=== PATIENT | female | born 1935 | race Caucasian/White ===

== ENCOUNTER 2016-04-20 07:21 | Inpatient (IN) | payer OTHER ==
--- NOTE | 2016-04-20 07:19 | EDPHY ---
H & P Time Seen by Provider: 04/20/16 07:21 HPI/ROS: CHIEF COMPLAINT: Hip injury HISTORY OF PRESENT ILLNESS: This 80-year-old woman was brought in by paramedics after having fallen out of bed onto the floor. She was found kneeling by the bed complaining of left hip pain. She received 2 micrograms/ kilogram of fentanyl IV prior to arrival and in the emergency department she is only partially conversant. Per EMS there is no history of head trauma and she was normally conversant on scene. REVIEW OF SYSTEMS: Eye: no change in vision ENT: no sore throat Cardiac: no chest pain or syncope Pulmonary: no cough or SOB Abdomen: no vomiting, diarrhea, abdominal pain Musculoskeletal: no back pain Skin: no rash Neuro: no headache Constitutional: no fever : no urinary symptoms A comprehensive 10 point review of systems and history is limited by the patient 's mental status on arrival. PAST MEDICAL HISTORY: Oxygen dependent COPD. C1 and C2 fracture in October of 2014, treated with a brace. Dementia. Social history: Lives alone, daughter involved. General Appearance: Alert but only intermittently answering questions. Eyes: No scleral icterus. ENT, Mouth: Normal mucous membranes. Respiratory: Normal respiratory effort, breath sounds equal, lungs are clear to auscultation. Cardiovascular: Regular rate and rhythm. Gastrointestinal: Abdomen is soft and non tender. Neurological: Patient is alert and will only intermittently follow commands. She does scream with any movement. Face symmetric, normal movement and sensation in all extremities. Skin: Warm and dry, no rashes. Musculoskeletal: Left hip pain with any movement. She appears to have good range of motion of her right leg. Normal dorsalis pedis pulse and sensation in the left foot. Psychiatric: Not agitated. Emergency Department course/MDM: X-rays of left hip, EKG and labs. 805: xrays reviewed with daughter. Daughter confirms the patient's history of cervical spine fracture last year as well as history of dementia. 807: patient is to be admitted to the hospital for orthopedic consultation and pain control. [facility] contacted at this time, per Dr. Mcmanus admit to [facility] for evaluation and definitive treatment. Constitutional: Initial Vital Signs Temperature (C) 36.5 C 04/20/16 07:49 Heart Rate 77 04/20/16 07:49 Respiratory Rate 20 04/20/16 07:49 Blood Pressure 184/77 H 04/20/16 07:49 O2 Sat (%) 96 04/20/16 07:49 O2 Delivery Mode Room Air O2 (L/minute) 4 Allergies/Adverse Reactions: No Known Drug Allergies Allergy (Verified 04/20/16 07:54) Home Medications: Medication Instructions Recorded Citalopram [CeleXA] 20 mg PO DAILY 04/20/16 Fluticasone/Salmeter 100/50Mcg 1 puffs IH BID 04/20/16 [Advair 100/50 (*)] Herbals/Supplements -Info Only 1 each PO DAILY 04/20/16 Lisinopril [Zestril 20 mg (*)] 20 mg PO BID 04/20/16 Tiotropium Inhaler [Spiriva 2 each IH DAILY@1030 04/20/16 Handihaler] Medical Decision Making - Diagnostics EKG Interpretation: 12-lead EKG interpreted by me; official reading is in trace master. My interpretation is sinus rhythm with borderline right axis, LVH. Imaging: X-ray left hip viewed independently by myself shows displaced left femoral neck fracture. CT head and cervical spine reported to me by Dr. Barcenas at 8:45 a.m. as C1 and C2 fracture, not new; head CT negative for acute injury. Per the patient's daughter she has a known cervical spine fracture consistent with the above findings. Differential Diagnosis: Differential for hip injury considered including but not limited to hip fracture , pelvic fracture, contusion, hip dislocation Consult/Admit Bed Type: [facility] 913am, [facility] 914am - Data Points Laboratory Results: Laboratory Results 04/20/16 08:15 04/20/16 08:15 04/20/16 08:15 WBC 8.77 10^3/uL (3.80-9.50) RBC 3.40 L 10^6/uL (4.18-5.33) Hgb 10.6 L g/dL (12.6-16.3) Hct 34.1 L % (38.0-47.0) MCV 100.3 H fL (81.5-99.8) MCH 31.2 pg (27.9-34.1) MCHC 31.1 L g/dL (32.4-36.7) RDW 13.0 % (11.5-15.2) Plt Count 263 10^3/uL (150-400) MPV 9.1 fL (8.7-11.7) Neut % (Auto) 86.7 H % (39.3-74.2) Lymph % (Auto) 7.1 L % (15.0-45.0) [place] % (Auto) 5.4 % (4.5-13.0) Eos % (Auto) 0.1 L % (0.6-7.6) Baso % (Auto) 0.5 % (0.3-1.7) Nucleat RBC Rel Count 0.0 % (0.0-0.2) Absolute Neuts (auto) 7.61 H 10^3/uL (1.70-6.50) Absolute Lymphs (auto) 0.62 L 10^3/uL (1.00-3.00) Absolute Monos (auto) 0.47 10^3/uL (0.30-0.80) Absolute Eos (auto) 0.01 L 10^3/uL (0.03-0.40) Absolute Basos (auto) 0.04 10^3/uL (0.02-0.10) Absolute Nucleated RBC 0.00 10^3/uL (0-0.01) Immature Gran % 0.2 % (0.0-1.1) Immature Gran # 0.02 10^3/uL (0.00-0.10) Sodium 142 mEq/L (134-144) Potassium 4.8 mEq/L (3.5-5.2) Chloride 100 mEq/L (97-110) Carbon Dioxide 38 H mEq/l (22-31) Anion Gap 4 mEq/L (8-16) BUN 36 H mg/dL (7-23) Creatinine 0.8 mg/dL (0.6-1.0) Estimated GFR > 60 Glucose 124 H mg/dL (70-100) Calcium 8.7 mg/dL (8.5-10.4) Patient ABO/Rh O POSITIVE Antibody Screen NEGATIVE Departure - Departure Disposition: [facility] Acute Clinical Impression: Left displaced femoral neck fracture Condition: Good
--- NOTE | 2016-04-20 08:18 | CPEKG ---
Heart Rate: 70 RR Interval: 857 P-R Interval: 184 QRSD Interval: 102 QT Interval: 436 QTC Interval: 471 P [place]: 84 QRS [place]: 86 T Wave [place]: 66 EKG Severity - ABNORMAL ECG - EKG Impression: SINUS ARRHYTHMIA, RATE 55-91 EKG Impression: BORDERLINE RIGHT AXIS DEVIATION EKG Impression: LOW VOLTAGE IN FRONTAL LEADS EKG Impression: CONSIDER LEFT VENTRICULAR HYPERTROPHY Electronically Signed By: Vern Lan 20-Apr-2016 10:08:27
[2016-04-20 08:36] LABS: % IMMATURE GRANULYOCYTES 0.2 % (0.0-1.1); ABSOLUTE IMMATURE GRANULOCYTES 0.02 10^3/uL (0.00-0.10); ADD DIFF? NO; ADD MORPH? NO; ADD SCAN? NO; ATYPICAL LYMPHOCYTE FLAG 0 (0-99); FRAGMENT RBC FLAG 0 (0-99); HEMATOCRIT 34.1 % (38.0-47.0); HEMOGLOBIN 10.6 g/dL (12.6-16.3); LEFT SHIFT FLG 0 (0-99); LIPEMIA HEMOLYSIS FLAG 80 (0-99); MEAN CELL HEMOGLOBIN 31.2 pg (27.9-34.1); MEAN CELL HEMOGLOBIN CONCENTR. 31.1 g/dL (32.4-36.7); MEAN CELL VOLUME 100.3 fL (81.5-99.8); MEAN PLATELET VOLUME 9.1 fL (8.7-11.7); PLATELET CLUMPS FLAG 10 (0-99); PLATELET COUNT 263 10^3/uL (150-400)
[2016-04-20 08:48] LABS: ANION GAP 4 mEq/L (8-16); CALCIUM 8.7 mg/dL (8.5-10.4); CARBON DIOXIDE 38 mEq/l (22-31); CHLORIDE 100 mEq/L (97-110); CREATININE 0.8 mg/dL (0.6-1.0); GLOMERULAR FILTRATION RATE > 60; GLUCOSE 124 mg/dL (70-100); POTASSIUM 4.8 mEq/L (3.5-5.2); SODIUM 142 mEq/L (134-144)
--- NOTE | 2016-04-20 09:07 | DX ---
Left hip series 2 views 0743 hours. History: Left hip pain following fall. Findings: There is fracture left femoral neck with proximal subluxation of the femoral shaft componen t and lateral rotation of the femoral head in the acetabulum. No additional fractures are seen about the pelvis. Hip joint spaces are normal. Calcified fibroid is suspected in lower pelvis. Facet hypert rophy is noted lower lumbar spine. Impression: 1. Subcapital fracture left femoral neck with superior subluxation of the femoral shaft component.
--- NOTE | 2016-04-20 09:15 | DX ---
Portable Chest, Single View April 20, 2016 8:06 a.m. Indication: Fall. COPD. Comparison: None Findings: The lungs are well-aerated and clear except for mild diffuse peribronchial thickening and m inimal linear atelectasis in the left base. No pneumothorax, edema, airspace consolidation or effusio n. The heart is minimally enlarged for portable technique. Impression: 1. No pneumothorax or evidence of acute fracture. 2. Hyperinflation and chronic mild airways disease.
--- NOTE | 2016-04-20 09:20 | CT ---
CT Head (Without Contrast) April 20, 2016 Indication: Fall. Patient has known cervical spine fracture. Technique: Standard noncontrast head CT protocol utilizing 5 mm thick collimated slices and field of view of 23 cm. Dose reduction techniques were utilized. Findings: No acute intracranial hemorrhage or subdural hematoma. The third and lateral ventricles are mildly dilated in the midline and there is diffuse periventricular and subcortical confluent low-att enuation white matter disease throughout the frontal, parietal, and posterior temporal lobes. Benign cavum septum pellucidum is present in the midline (normal developmental variation). No evidence of ac ursula ischemia. No acute skull or facial fracture. Old/subacute dens and C1 ring fractures are better c haracterized on dedicated CT of the cervical spine. Impression: 1. No acute intracranial hemorrhage or mass effect. 2. No acute skull fracture. 3. C1 and C2 fractures incompletely characterized. 4. Confluent diffuse nonspecific white matter disease. Comment: Results were discussed with Dr. Vern Lan at 8:30 a.m. on April 20, 2016.
--- NOTE | 2016-04-20 09:29 | CT ---
CT Cervical Spine April 20, 2016 Indication: Trauma. Neck pain. Patient has known C1 and C2 cervical spine fractures. Technique: 1.25 mm thick axial collimated slices were obtained from the occiput through superior endp late of T2. The data was reconstructed in the sagittal and coronal plane. Both soft tissue and bone w indows were reviewed. Dose reduction techniques were utilized. Comparison: None. Findings: An old/subacute type II dens fracture traverses the base of the dens at the interface with the body. The dens fracture fragment is dorsally tilted and posteriorly displaced 5-6 mm relative to the C2 body and the body and posterior ring of C2 are anteriorly translated relative to the ring of C 1. The interface of the dens fracture has sclerotic margins. A three-site old/subacute C1 fracture consists of an anterior midline ring fracture with a 6 mm gap b etween the two anterior components. Bilateral fractures course through the posterior lateral aspect o f the ring at the 7:30 and 4:30 positions. The C1 lateral masses normally articulate with the occipit al condyle. No other fractures. No acute cervical spine fracture. The anterolisthesis of C2 relative to the C1 ring results in moderate central canal narrowing and mil d compression of the cord at the C1-C2 level. Severe degenerative disk disease is present at C5-C6 and C6-C7. C3 is anterolisthesed 3 mm on C4 and C4 is anterolisthesed 3 mm on C5 due to productive facet arthropathy. Extensive emphysema is present in bilateral lung apices. No suspicious pulmonary nodule. Impression: 1. Subacute displaced type II dens fracture resulting in mild compression of the spinal cord at the C 1-C2 level. 2. Subacute old three-site fracture of the C1 ring. 3. If the patient has persistent pain or neurologic deficits, consider cervical spine MRI. Comment: The results were discussed with Dr. Vern Lan at 8:30 a.m on April 20, 2016.
[2016-04-20] MEDS ORDERED: ONDANSETRON 4 MG/2 ML VIAL IVP PRN (11:08)
[2016-04-20] MEDS ORDERED: hydrALAZINE 20 MG/ML VIAL IVP PRN (11:08)
[2016-04-20] MEDS ORDERED: NS 1,000 ML IV SCH (11:15)
[2016-04-20] MEDS ORDERED: 1/2 NS 1,000 ML IV SCH (11:30)
[2016-04-20] MEDS ORDERED: CEFAZOLIN 2 GM/DEXTR 100 ML IV ONE (12:30)
[2016-04-20] MEDS ORDERED: DEXAMETHASONE 4 MG/ML VIAL IVP ONE (12:30)
[2016-04-20] MEDS ORDERED: FAMOTIDINE 20 MG TAB PO ONE (12:30)
[2016-04-20] MEDS ORDERED: ROPI/epiNEPH/KETOROLAC JOINT COCKTAIL IU ONE (12:30)
[2016-04-20] MEDS ORDERED: CHLORHEXIDINE GLUC HIBICLENS 118 ML BTL TP ONE (12:30)
[2016-04-20] MEDS ORDERED: POVIDONE-IODINE 20 ML in SODIUM CL IRRIG SOLUTION 500 ML IRR ONE (12:30)
[2016-04-20] MEDS ORDERED: fentaNYL 100 MCG/2 ML INJ IVP PRN (12:38)
[2016-04-20] MEDS ORDERED: fentaNYL 100 MCG/2 ML INJ ONE ×2 (12:38→14:23)
[2016-04-20] MEDS ORDERED: SKIN ADHESIVE (DERMABOND) 1 EACH TP ONE (13:04)
[2016-04-20] MEDS ORDERED: ceFAZolin 1 GM/5 ML SYR ONE (13:05)
[2016-04-20] MEDS ORDERED: TRANEXAMIC ACID 750 MG in NS 100 ML IV ONE (13:30)
[2016-04-20] MEDS ORDERED: LIDOCAINE 2% 5 ML SDV ONE (14:24)
[2016-04-20] MEDS ORDERED: PROPOFOL 200 MG/20 ML VIAL ONE (14:24)
--- NOTE | 2016-04-20 14:39 | GHP ---
[f rep st] HISTORY AND PHYSICAL DATE OF ADMISSION: 04/20/2016 CHIEF COMPLAINT: Hip pain. HISTORY: The patient is an 80-year-old female with advanced dementia, but she does manage to live in dependently with her daughter living nearby and caregivers coming in twice a day. It appears she fel l out of bed earlier today. Her daughter received a call of distress, and came over to find her on t he floor next to her bed on her hands and knees unable to move. She did not initially know what was wrong, was just very confused as to why she was unable to move. Paramedics were called and it was no manfred that she had some left hip pain. Her mental status was at her normal baseline at the scene. She did receive IV fentanyl en route and is now quite confused. [place] is she fell out of bed given her location at the time of discovery. The patient cannot give any further history. According to h er daughter, she has been at her baseline doing very well recently without any recent illnesses. She does not have any chest pain or shortness of breath typically and is chronically on 2.5 L of oxygen for her COPD, recently unchanged. PAST MEDICAL HISTORY: 1. Recent C1-C2 fracture which was not operated upon because of her frail status. I believe she wea rs a brace. 2. Osteoporosis. 3. Dementia. 4. COPD, 2.5 L baseline. 5. Hepatitis as a child. MEDICATIONS: Please see computer record for full details. ALLERGIES: No known drug allergies. SOCIAL HISTORY: Quit smoking at age 51. She did drink alcohol heavily in the past, but has not had any alcohol for the last 10 years. She lives independently. She is able to do her ADL's such as fee ding herself and toileting herself by herself, and a caregiver comes in twice a day to help her with medications. Daughter lives nearby. REVIEW OF SYSTEMS: Complete review of systems obtained. Review of systems is negative including con stitutional, HEENT, GI, pulmonary, cardiovascular, , hematology, skin, muscular, endocrine, psych e xcept for positives or negatives which were listed in the HPI. Review of systems is obtained through the daughter as the patient is currently nonparticipatory post narcotics. FAMILY HISTORY: Reviewed and noncontributory to current complaint. PHYSICAL EXAMINATION: GENERAL: Well-developed, well-nourished female in no acute distress. She is moaning continuously. VITAL SIGNS: Temp is 36.5, pulse 67, blood pressure 184/77, sat 100% on 2 L. EYES: Normal conjunctivae. Pupils equal and react to light. ENT: Normal ears and nose. Hearing intact. Normal Teeth. Oropharynx moist. NECK: Trachea midline. No thyromegaly. CHEST: Normal re spiratory effort. LUNGS: Clear to auscultation bilaterally. CARDIOVASCULAR: Regular rate and rhyt hm. No murmur. No lower extremity edema. ABDOMEN: Soft, nontender. No hepatosplenomegaly. SKIN: Warm, dry, intact. No rash. MUSCULOSKELETAL: No cyanosis or clubbing. Strength 5/5 upper extrem ities. NEUROLOGIC: Cranial nerves grossly intact. Difficult to assess sensation due to patient dorene ng nonparticipatory and moaning. PSYCH: Disoriented, confused, agitated, poor judgment and insight. Poor memory. Poor historian. LABS: White count 8.77, hematocrit 34.1, platelets 263. Sodium 142, potassium 4.8, chloride 100, bi carb 38, BUN 36, creatinine 0.8, glucose 124. EKG viewed by me: My personal interpretation is normal sinus rhythm. No ST-T wave changes. CT scan shows an incomplete C1-C2 fracture. She has a dens fracture with mild compression of the cor d as well as a C1 ring fracture. X-ray shows a left femoral neck fracture. ASSESSMENT/PLAN: 1. Hip fracture. She is going to surgery imminently. She is frail; however, medically optimized to proceed. Cardiopulmonary status appears to be optimized and at baseline. She will need Lovenox for DVT prophylaxis which can be initiated tomorrow morning. 2. Incomplete C1-C2 fracture. Recently evaluated and no surgery pursued due to her overall frail st atus. She will continue with her brace. 3. Dementia. This was at her baseline status prior to receiving narcotics. 4. Hypertension. This is likely due to acute pain. Will continue her usual lisinopril and monitor. 5. Chronic obstructive pulmonary disease. Baseline 2.5 L with chronic respiratory failure. This is at baseline and stable. CODE STATUS: DNR. ADMISSION STATUS: Will admit to inpatient as I anticipate greater than 2 midnights will be required given severity of hip fracture situation. DVT prophylaxis: Lovenox can be initiated in the postoper ative state. /[id number]/MODL
[2016-04-20] MEDS ORDERED: ONDANSETRON 4 MG/2 ML VIAL ONE (15:22)
--- NOTE | 2016-04-20 15:50 | POSTOPPROG ---
Post Op Note Date of Operation: 04/20/16 Surgeon: Aroldo Zimmerman Reverberatory Furnace Supervisor: Marci Anesthesiologist: Pooja Anesthesia: GET(General Endotracheal) Post-op Diagnosis: displaced left femoral neck fracture Procedure: cemented left femoral bipolar prosthesis Inf/Abcess present in the surg proc area at time of surgery?: No EBL: 100-154
[2016-04-20] MEDS ORDERED: PHARMACY PAIN CONSULT 1 EA MISC PRN (16:22)
--- NOTE | 2016-04-20 17:51 | GOP ---
[f rep st] OPERATIVE REPORT DATE OF OPERATION: 04/20/2016 SURGEON: Aroldo Zimmerman MD AIR QUALITY ENGINEER: MARILYNN Salcedo and Aleksandr Mohan CFA ANESTHESIA: General ANESTHESIOLOGIST: Joshua Patton MD PREOPERATIVE DIAGNOSIS: Displaced left femoral neck fracture. POSTOPERATIVE DIAGNOSIS: Displaced left femoral neck fracture. PROCEDURE PERFORMED: Cemented left femoral bipolar endoprosthesis. FINDINGS: DESCRIPTION OF PROCEDURE: The patient was given 2 g of IV Ancef preoperatively within 60 minutes of surgery. She also received IV tranexamic acid at a dose of 20 mg/kg. She was brought to the operati ng room in her hospital bed. Dr. Patton administered general anesthesia with an LMA while she was in her hospital bed. She was then transferred to the operating room table. A Atkins catheter was insert ed. There was considerable fecal staining of her underwear and perineum. This was cleaned. A Atkins catheter was inserted with sterile technique. A SELVIN stocking and SCD were placed on her nonoperativ e leg. She was rolled to the right lateral decubitus position. The position was secured with the pe gboard table attachment. She was very thin and very bony. I was careful to pad all her pressure poi nts carefully. In addition, she had a history of a C1-C2 cervical spine fracture. Her head and neck were handled very carefully while positioning her. I was careful to lock her pelvis in a vertical p osition. Her perineum was isolated with plastic adhesive drapes. The left hip and left lower extrem ity were prepped with ChloraPrep. They were draped free using sterile sheets, stockinette, and Ioban plastic drape. The [employer] time-out was performed to verify the correct surgical side and the [facility] patient identity. The [place] time-out was also performed. I made a 4- to 5-inch straight oblique posterolateral hip skin incision. Subcutaneous tissues were s harply divided and hemostasis was obtained using electrocautery. She had a very thin layer of subcut aneous fat. Her fascia jese was identified and split along the axis of its fibers. I then curved po steriorly and proximally and split the fascia of the gluteus socorro and bluntly split the muscle fib ers in line with their orientation. A Charnley self-retaining retractor was carefully inserted. Her sciatic nerve was located and protected throughout the procedure. The external rotators and the pos terior hip capsule were divided as separate layers at the base of the femoral neck, tagged and reflec selvin posteriorly. A smooth 8-inch Steinmann pin was inserted vertically in the ilium superior to the acetabulum to act as a retractor for the gluteus medius. Her fractured femoral head was dislocated p osteriorly. The acetabulum was inspected. Her articular cartilage was in good condition. Her femor al neck was osteotomized at the appropriate level and inclination. I reamed and broached sequentially up to a size 7. Using the 7 broach as a trial stem, I did a trial reduction. I had previously measured the diameter of the removed femoral head. I had used the tria l prosthesis in the acetabulum and concluded that 45 mm was the proper head size. The 45 mm bipolar head was attached to the broach. The hip was reduced. Her stability was excellent. Leg lengths loo ked appropriate. Her canal was prepared for cementing. It was thoroughly irrigated with saline. I then packed the ca nal with epinephrine-soaked sponges. I measured for and inserted an appropriate sized centralizer fo r the distal tip of the prosthesis. I also inserted a distal cement restrictor in the medullary nay l. I prepared the canal as dry as possible. A double batch of methylmethacrylate cement was mixed. It was injected into the femoral canal and wa s pressurized while it was still soft. The femoral component was then inserted and the cement was pr essurized as it was tapped securely into place. Excess cement was removed before it hardened. I derick selvin until the cement was fully hardened. I then did another trial reduction and concluded that the 4 5 mm diameter bipolar head with a 0 neck length was the proper combination. The 26 mm head with a 0 neck length was tapped onto the clean trunnion. The 45 mm bipolar head was locked on to the 26 mm he ad. The acetabulum was inspected and was clear. The hip was reduced. Stability and range of motion were checked. The wound was thoroughly irrigated 1 final time with a dilute Betadine solution. 40 mL of the joint anesthetic cocktail were injected into the deep musculature and the subcutaneous tissues around the s kin edges. One final thorough irrigation was performed with the dilute Betadine solution. Her sciat ic nerve was reinspected and looked unharmed. The external rotators and the posterior hip capsule we re repaired in separate layers with #2 FiberWire sutures through drill holes in the greater trochante r. This provided a strong posterior capsular and external rotator repair. Her fascia jese was repai red with a running #2 barbed Ethicon Stratafix PDO suture. Subcutaneous tissues were closed with a r unning 0 barbed Ethicon Stratafix Monoderm suture. The skin was closed with a running 3-0 barbed Eth icon Stratafix Monoderm subcuticular suture. The skin edges were reapproximated and sealed with Derm abond glue. The wound was covered with a strip of Telfa, and everything was held in place with a pie ce of clear plastic Tegaderm. A long-leg SELVIN stocking and SCD were applied to her left lower extremity. She wore a stocking and SC D on the opposite leg during the procedure. An abduction pillow was placed between her knees. She w as awakened from anesthesia and rolled to the supine position on her [facility]. She was taken to PACU in satisfactory condition. There were no recognized intraoperative complications. The estimated blood loss was about 100 mL. I used a O'Kean Omnifit fracture stem with 132 mm neck angle and a size 7. The bipolar head was mad e up of a 26 mm metal head with a 0 neck length and a 45 mm bipolar head. Naveed Muniz and Aleksandr Mohan acted as surgical assistants. Their assistance was a medical necess ity. /[id number]/MODL
[2016-04-20] MEDS: LISINOPRIL 20 MG TAB PO SCH (20:30)
[2016-04-20] MEDS: traMADol 50 MG TAB PO PRN (20:33)
[2016-04-20] MEDS: ACETAMINOPHEN 325 MG TAB PO PRN (20:34)
[2016-04-20] MEDS: FLUTICASONE/SALMETER 100/50MCG DISKUS IH SCH (21:33)
--- NOTE | 2016-04-20 22:13 | DX ---
Two Views of the Pelvis, April 20, 2016 at 2158 hours Indication: Follow up hip fracture. Comparison: April 20 2016 at 0743 hours. Findings: Mild degenerative changes are present at the right hip joint. Left femoral head has been re moved and there is a new prosthesis in place. Alignment is near anatomic. Impression: Left hip arthroplasty in good anatomic positioning for left subcapital neck fracture.
[2016-04-21] MEDS: HYDROCODONE/APAP 5/325 TAB PO PRN (04:12)
[2016-04-21 05:40] LABS: % IMMATURE GRANULYOCYTES 0.3 % (0.0-1.1); ABSOLUTE IMMATURE GRANULOCYTES 0.02 10^3/uL (0.00-0.10); ADD DIFF? NO; ADD MORPH? NO; ADD SCAN? NO; ATYPICAL LYMPHOCYTE FLAG 10 (0-99); FRAGMENT RBC FLAG 0 (0-99); HEMATOCRIT 28.3 % (38.0-47.0); HEMOGLOBIN 8.4 g/dL (12.6-16.3); LEFT SHIFT FLG 30 (0-99); LIPEMIA HEMOLYSIS FLAG 70 (0-99); MEAN CELL HEMOGLOBIN 30.4 pg (27.9-34.1); MEAN CELL HEMOGLOBIN CONCENTR. 29.7 g/dL (32.4-36.7); MEAN CELL VOLUME 102.5 fL (81.5-99.8); MEAN PLATELET VOLUME 8.8 fL (8.7-11.7); PLATELET CLUMPS FLAG 0 (0-99); PLATELET COUNT 223 10^3/uL (150-400); RED BLOOD CELL COUNT 2.76 10^6/uL (4.18-5.33); RED CELL DISTRIBUTION WIDTH 13.2 % (11.5-15.2)
[2016-04-21 05:50] LABS: ANION GAP 3 mEq/L (8-16); CALCIUM 8.3 mg/dL (8.5-10.4); CARBON DIOXIDE 36 mEq/l (22-31); CHLORIDE 102 mEq/L (97-110); CREATININE 0.8 mg/dL (0.6-1.0); GLOMERULAR FILTRATION RATE > 60; GLUCOSE 80 mg/dL (70-100); POTASSIUM 5.2 mEq/L (3.5-5.2); SODIUM 141 mEq/L (134-144)
--- NOTE | 2016-04-21 07:24 | SOAPPROG ---
SOAP Progress Note Assessment/Plan: Assessment: Groggy and disoriented. Afebrile. VS ok H/H is low but acceptable for now. Films look good. Plan: Up with PT. Watch H/H. 04/21/16 07:22 Objective: Vital Signs Temp Pulse Resp BP Pulse Ox 36.6 C 81 12 139/75 H 100 04/21/16 04:00 04/21/16 04:00 04/21/16 04:00 04/21/16 04:00 04/21/16 04:00 Laboratory Results 04/21/16 05:26 04/21/16 05:26 04/20/16 04/21/16 04/22/16 05:59 05:59 05:59 Intake Total 700 Output Total 680 Balance 20 ICD10 Worksheet Patient Problems: Problems Problem Status Diagnosed Left displaced femoral neck fracture Acute
[2016-04-21] MEDS: CITALOPRAM 20 MG TAB PO SCH (08:21)
[2016-04-21] MEDS: LISINOPRIL 20 MG TAB PO SCH (08:21)
[2016-04-21] MEDS ORDERED: ENOXAPARIN 40 MG/0.4 ML SYR SC SCH (09:00)
[2016-04-21] MEDS: Tiotropium Bromide [Spiriva Respimat] 2 INH IH SCH (09:19)
[2016-04-21] MEDS: FLUTICASONE/SALMETER 100/50MCG DISKUS IH SCH ×2 (09:19→23:00)
[2016-04-21] MEDS ORDERED: TIOTROPIUM INHALER 18 MCG/DOSE 5 DOSE/MDI IH SCH (10:30)
--- NOTE | 2016-04-21 14:16 | HOSPPROG ---
Hospitalist Progress Note Assessment/Plan: ASSESSMENT/PLAN: # L hip fx s/p ORIF - recovering well # dementia/delirium - reasonably oriented for me # C1-C2 fx - stable, no ongoing need for brace per dtr # martinez - dc # htn - lisinopril # COPD/chronic resp failure 2L O2 - baseline # lovenox # DNR SUBJECTIVE: No complaints to me OBJECTIVE: Vitals reviewed Comfortable, no acute distress Regular rate and rhythm, no murmurs rubs or gallops No respiratory distress, lungs clear to auscultation bilaterally; no wheezes rales or rhonchi Abdomen with normal bowel sounds, soft, nontender, nondistended LABORATORY DATA: Hemoglobin 8.4 IMAGING: Hip and pelvic x-rays reviewed personally MICROBIOLOGY: None Chart reviewed Objective: Vital Signs Temp Pulse Resp BP Pulse Ox 36.4 C 64 16 120/64 100 04/21/16 12:35 04/21/16 12:35 04/21/16 12:35 04/21/16 12:35 04/21/16 12:35 Laboratory Results 04/21/16 05:26 04/21/16 05:26 04/20/16 04/21/16 04/22/16 05:59 05:59 05:59 Intake Total 700 Output Total 680 Balance 20 ICD10 Worksheet Patient Problems: Problems Problem Status Diagnosed Left displaced femoral neck fracture Acute
[2016-04-21] MEDS: RIVAROXABAN 10 MG TAB PO SCH (14:55)
[2016-04-21] MEDS: ACETAMINOPHEN 325 MG TAB PO PRN (14:55)
[2016-04-21] MEDS: traMADol 50 MG TAB PO PRN (15:50)
[2016-04-22] MEDS: LISINOPRIL 20 MG TAB PO SCH ×3 (00:31→21:28)
[2016-04-22] MEDS: traMADol 50 MG TAB PO PRN ×2 (03:21→18:08)
[2016-04-22] MEDS: HYDROCODONE/APAP 5/325 TAB PO PRN (03:21)
[2016-04-22 05:02] LABS: % IMMATURE GRANULYOCYTES 0.3 % (0.0-1.1); ABSOLUTE IMMATURE GRANULOCYTES 0.02 10^3/uL (0.00-0.10); ADD DIFF? NO; ADD MORPH? NO; ADD SCAN? NO; ATYPICAL LYMPHOCYTE FLAG 0 (0-99); FRAGMENT RBC FLAG 0 (0-99); HEMATOCRIT 26.5 % (38.0-47.0); HEMOGLOBIN 7.8 g/dL (12.6-16.3); LEFT SHIFT FLG 20 (0-99); LIPEMIA HEMOLYSIS FLAG 70 (0-99); MEAN CELL HEMOGLOBIN CONCENTR. 29.4 g/dL (32.4-36.7); MEAN CELL VOLUME 101.9 fL (81.5-99.8); MEAN PLATELET VOLUME 9.2 fL (8.7-11.7); PLATELET CLUMPS FLAG 0 (0-99); PLATELET COUNT 216 10^3/uL (150-400); RED CELL DISTRIBUTION WIDTH 12.9 % (11.5-15.2)
--- NOTE | 2016-04-22 08:37 | SOAPPROG ---
SOAP Progress Note Assessment/Plan: Assessment: POD #2, s/p L hip fracture with bipolar prosthesis. Awake, afebrile. Eating breakfast. A and O x 2. Dressing clean and dry. No thigh swelling. H/H slightly lower than yesterday. Normal sciatic nerve function. OOB yesterday with PT/OT. Decreased ROM of L hip secondary to pain. Refusing lovenox. Switched to Xarelto for DVT prophylaxis per hospitalist. Plan: Cont. PT/OT. OK to discharge to SNF once medically stable per hospitalist. Consider 1U PRBCs today. Ortho. will sign off. 04/22/16 08:33 Objective: Vital Signs Temp Pulse Resp BP Pulse Ox 36.9 C 70 16 134/71 H 96 04/22/16 07:46 04/22/16 07:46 04/22/16 07:46 04/22/16 07:46 04/22/16 07:46 Laboratory Results 04/22/16 04:45 04/21/16 05:26 04/21/16 04/22/16 04/23/16 05:59 05:59 05:59 Intake Total 700 300 Output Total 680 400 Balance 20 -100 ICD10 Worksheet Patient Problems: Problems Problem Status Diagnosed Left displaced femoral neck fracture Acute
[2016-04-22] MEDS: FLUTICASONE/SALMETER 100/50MCG DISKUS IH SCH ×2 (09:08→21:45)
[2016-04-22] MEDS: Tiotropium Bromide [Spiriva Respimat] 2 INH IH SCH (09:09)
[2016-04-22] MEDS: RIVAROXABAN 10 MG TAB PO SCH (09:50)
[2016-04-22] MEDS: CITALOPRAM 20 MG TAB PO SCH (09:51)
--- NOTE | 2016-04-22 14:01 | HOSPPROG ---
Hospitalist Progress Note Assessment/Plan: ASSESSMENT/PLAN: # L hip fx s/p ORIF - recovering well # dementia/delirium - worse today for me # C1-C2 fx - stable, no ongoing need for brace per dtr # htn - lisinopril # COPD/chronic resp failure 2L O2 - baseline # lovenox # DNR SUBJECTIVE: Confused, disoriented OBJECTIVE: Vitals reviewed Comfortable, no acute distress; frustrated, not sure why she is having breakfast in the hospital LABORATORY DATA: Hemoglobin 7.8 IMAGING: MICROBIOLOGY: None Chart reviewed - including John Muniz's note reviewed Objective: Vital Signs Temp Pulse Resp BP Pulse Ox 36.9 C 70 16 134/71 H 96 04/22/16 07:46 04/22/16 07:46 04/22/16 07:46 04/22/16 09:51 04/22/16 07:46 Laboratory Results 04/22/16 04:45 04/21/16 05:26 04/21/16 04/22/16 04/23/16 05:59 05:59 05:59 Intake Total 700 300 Output Total 680 400 Balance 20 -100 ICD10 Worksheet Patient Problems: Problems Problem Status Diagnosed Left displaced femoral neck fracture Acute
[2016-04-23 05:15] LABS: % IMMATURE GRANULYOCYTES 0.2 % (0.0-1.1); ABSOLUTE IMMATURE GRANULOCYTES 0.01 10^3/uL (0.00-0.10); ADD DIFF? NO; ADD MORPH? NO; ADD SCAN? NO; ATYPICAL LYMPHOCYTE FLAG 20 (0-99); FRAGMENT RBC FLAG 0 (0-99); HEMATOCRIT 25.9 % (38.0-47.0); HEMOGLOBIN 7.7 g/dL (12.6-16.3); LEFT SHIFT FLG 0 (0-99); LIPEMIA HEMOLYSIS FLAG 70 (0-99); MEAN CELL HEMOGLOBIN 30.9 pg (27.9-34.1); MEAN CELL HEMOGLOBIN CONCENTR. 29.7 g/dL (32.4-36.7); MEAN PLATELET VOLUME 9.4 fL (8.7-11.7); PLATELET CLUMPS FLAG 0 (0-99); PLATELET COUNT 218 10^3/uL (150-400); RED BLOOD CELL COUNT 2.49 10^6/uL (4.18-5.33); RED CELL DISTRIBUTION WIDTH 13.2 % (11.5-15.2)
[2016-04-23] MEDS: ACETAMINOPHEN 325 MG TAB PO PRN (05:18)
[2016-04-23 07:34] VITALS: BP 152/66; PULSE 70; RESP 20; TEMP 98.6; O2SAT 96
[2016-04-23] MEDS: CITALOPRAM 20 MG TAB PO SCH (09:08)
[2016-04-23] MEDS: LISINOPRIL 20 MG TAB PO SCH (09:08)
[2016-04-23] MEDS: RIVAROXABAN 10 MG TAB PO SCH (09:08)
[2016-04-23] MEDS: FLUTICASONE/SALMETER 100/50MCG DISKUS IH SCH (09:15)
[2016-04-23] MEDS: Tiotropium Bromide [Spiriva Respimat] 2 INH IH SCH (09:16)
[2016-04-23] MEDS: traMADol 50 MG TAB PO PRN (09:21)
[2016-04-23] MEDS ORDERED: BISACODYL 10 MG SUPP PR PRN (09:56)
[2016-04-23] MEDS ORDERED: MAGNESIUM HYDROXIDE 30 ML UDCUP PO PRN (09:56)
[2016-04-23] MEDS ORDERED: POLYETHYLENE GLYCOL 3350 17 GM PKT PO PRN (09:56)
[2016-04-23] MEDS ORDERED: LACTULOSE 20 GM/30 ML UDCUP PO PRN (09:56)
--- NOTE | 2016-04-23 10:06 | PDIAF ---
- Diagnosis Diagnosis: hip fracture Code Status: Do Not Resuscitate - Medication Management Discharge Medications: Medications to Continue on Transfer Citalopram [CeleXA 20 MG] 20 mg PO DAILY 04/20/16 [Last Taken 04/19/16] Fluticasone/Salmeter 100/50Mcg [Advair 100/50 (*)] 1 puffs IH BID 04/20/16 [ Last Taken 04/20/16] Herbals/Supplements -Info Only 1 each PO DAILY 04/20/16 [Last Taken Unknown] Lisinopril [Zestril 20 mg (*)] 20 mg PO BID 04/20/16 [Last Taken 04/19/16] Tiotropium Purcell [Spiriva Respimat] 2 inh IH DAILY@1030 04/20/16 [Last Taken 04/19/16] Ferrous Sulfate [Ferrous Sulf 325 MG (*)] 325 mg PO DAILY #30 tab 04/23/16 [ Last Taken Unknown] Rivaroxaban [Xarelto 10mg (*)] 10 mg PO DAILY #0 tab 04/23/16 [Last Taken Unknown] traMADol [Ultram 50 mg (*)] 100 mg PO BID PRN #0 tab 04/23/16 [Last Taken Unknown] Discharge Medications: Refer to the Discharge Home Medication list for PRN reason. - Orders Services needed: Registered Nurse, Certified [employer]ens [employer], Physical Therapy, Occupational Therapy - Follow Up Care Current Providers and Referrals: NONE *PRIMARY CARE P,. [Unknown] - As per Instructions
--- NOTE | 2016-04-23 10:24 | GDS ---
[f rep st] DISCHARGE SUMMARY ALL DIAGNOSES: 1. Hip fracture status post operative repair. 2. Dementia/delirium. 3. Old C1-C2 fracture which is stable and has not been in a brace for months. 4. Hypertension. 5. Anemia: Acute blood loss on suspected chronic. 6. Chronic obstructive pulmonary disease with chronic respiratory failure on 2 L of oxygen at [facility]. HOSPITAL COURSE: This is an 80-year-old female with dementia who presented after a fall. She was fo und to have a hip fracture which was repaired by Dr. Zimmerman on April 20. She has done well. She is mobilizing with physical therapy. She will need ongoing physical therapy for this. She has underlying dementia and had some mild additional delirium at the hospital. I have discussed this with her daughter. At baseline, she has difficulty with short-term memory. She has managed to live on her own, but she has significant help at home. Not sure that she will be able to remain inde pendent for much longer. In terms of prophylaxis, I have given her low-dose Xarelto. This should be continued for about 1 mor e week. She has been anemic which has been stable for about 48 hours. Hemoglobin on discharge is 7.7. I hav e given her some iron as there is likely a blood loss component; though I note that her MCV has been between 100 and 104. She has a history of a C1-C2 fracture. I discussed this with her daughter. She was in a neck brace for some time, but has been out of it for about 2 months. BILLING: I spent more than 30 minutes on the day of discharge coordinating care. /[id number]/MODL
[2016-04-23] MEDS ORDERED: SENNOSIDES/DOCUSATE SODIUM TAB PO SCH (21:00)
== END 2016-04-23 12:40 | DRG 470 ==
LOC: EDUNIT# → F3N 10:48
PROVIDERS: ADMIT Internal Medicine; ATTEND Internal Medicine
PROC: 0SRB0J9 Replacement of Left Hip Joint with Synthetic Substitute, Cemented, Open Approach (ICD-10-PCS; principal; 2016-04-20 14:25)
DX: S72.012A Unspecified intracapsular fracture of left femur, initial encounter for closed fracture (principal); W06.XXXA Fall from bed, initial encounter; Y92.002 Bathroom of unspecified non-institutional (private) residence as the place of occurrence of the external cause; D62 Acute posthemorrhagic anemia; F03.90 Unspecified dementia, unspecified severity, without behavioral disturbance, psychotic disturbance, mood disturbance, and anxiety; J44.9 Chronic obstructive pulmonary disease, unspecified; J96.11 Chronic respiratory failure with hypoxia; Z99.81 Dependence on supplemental oxygen; Z87.891 Personal history of nicotine dependence; Z66 Do not resuscitate
CPT/HCPCS: 97162-GP; 97166-GO; 97530-GP; C1713; J0171; J0690; J1885; J2405; J2704; J2795; J3010